=== PATIENT | female | born 1995 | race Caucasian/White ===

== ENCOUNTER 2025-02-22 15:47 | Inpatient (IN) | payer MEDICAID, OTHER ==
[~2025-02-22] VITALS: Ht 160 cm; Wt 79.4 kg
[2025-02-22 10:00] VITALS: BP 117/74; PULSE 66; RESP 18; TEMP 36.8072
[2025-02-22 15:51] VITALS: O2SAT 98
[2025-02-22 16:30] LABS: BASOPHILS % 0.9 % (0.0-2.0); EOSINOPHILS % 4.5 % (0.0-5.0); HEMATOCRIT. 37.2 % (36.0-48.0); HEMOGLOBIN. 12.5 g/dL (12.0-16.0); LYMPHOCYTES % 25.1 % (20.0-50.0); MEAN PLATELET VOLUME 9.0 fl (7.4-10.4); MONOCYTES % 3.7 % (2.0-8.0); NEUTROPHILS % 65.8 % (40.0-76.0); PLATELET 370 x1000/uL (130-400); RED BLOOD CELL COUNT 4.49 mill/uL (4.2-5.4); RED CELL DISTRIBUTION WIDTH 14.3 % (11.6-14.6)
[2025-02-22 16:40] LABS: CLARITY URINE CLEAR (CLEAR); COLOR URINE YELLOW (YELLOW); GLUCOSE URINE NEGATIVE (NEGATIVE); KETONES URINE NEGATIVE (NEGATIVE); LEUKOCYTE ESTERASE URINE NEGATIVE (NEGATIVE); NITRITE URINE NEGATIVE (NEGATIVE); OCCULT BLOOD URINE NEGATIVE (NEGATIVE); PH URINE 5.5 (4.5-8.0); PROTEIN URINE NEGATIVE (NEGATIVE); SPECIFIC GRAVITY URINE 1.008 (1.005-1.030); UROBILINOGEN URINE 0.2 E.U./dL (0.2-1.0)
[2025-02-22 16:44] LABS: CREATININE 0.8 mg/dL (0.6-1.0); UREA NITROGEN BLOOD 7 mg/dL (9-23)
[2025-02-22 16:46] LABS: ASPARTATE AMINOTRANSFERASE 83 IU/L (<34); BILIRUBIN DIRECT 0.2 mg/dL (<=3.0); BILIRUBIN TOTAL 0.5 mg/dL (0.1-1.0); PROTEIN TOTAL 8.5 g/dL (6.0-8.3)
[2025-02-22] MEDS: ONDANSETRON HCL 4MG/2ML INJ IV ONE (17:00)
[2025-02-22] MEDS: MORPHINE SULFATE 4 MG/ML INJ (FOR IV/IM USE) IV ONE (17:00)
[2025-02-22] MEDS: SODIUM CHLORIDE 0.9% 1,000 ML IV ONE (17:36)
[2025-02-22 18:16] LABS: HCG SCREEN NEGATIVE
[2025-02-22] MEDS ORDERED: HYDROCODONE/ACETAMINOPHEN 5/325MG TABLET PO PRN (22:00)
[2025-02-22] MEDS ORDERED: ZOLPIDEM TARTRATE 5MG TABLET PO PRN (22:00)
[2025-02-22] MEDS: ENOXAPARIN 40MG/0.4ML SYR SUBCUT SCH (22:00)
[2025-02-22] MEDS ORDERED: MAGNESIUM/ALUMINUM HYDROXIDE/SIMETHICONE 30ML UDC PO PRN (22:00)
[2025-02-22] MEDS ORDERED: HYDROMORPHONE HCL/PF 1MG/ML INJ IV PRN (22:00)
[2025-02-22] MEDS ORDERED: CLONIDINE 0.1MG TABLET PO PRN (22:00)
[2025-02-22] MEDS: SODIUM CHLORIDE 0.9% 1,000 ML IV SCH (22:00)
[2025-02-22] MEDS ORDERED: NALOXONE HCL 0.4MG/ML VIAL IV PRN (22:00)
[2025-02-22] MEDS: ONDANSETRON HCL 4MG/2ML INJ IV PRN (23:35)
[2025-02-22] MEDS: PANTOPRAZOLE SODIUM 40 MG/VIAL IV SCH (23:35)
[2025-02-23 07:47] LABS: BASOPHILS % 0.4 % (0.0-2.0); EOSINOPHILS % 3.9 % (0.0-5.0); HEMATOCRIT. 35.9 % (36.0-48.0); HEMOGLOBIN. 12.1 g/dL (12.0-16.0); LYMPHOCYTES % 36.4 % (20.0-50.0); MEAN PLATELET VOLUME 10.0 fl (7.4-10.4); MONOCYTES % 4.9 % (2.0-8.0); NEUTROPHILS % 54.4 % (40.0-76.0); PLATELET 335 x1000/uL (130-400); RED BLOOD CELL COUNT 4.33 mill/uL (4.2-5.4); RED CELL DISTRIBUTION WIDTH 14.3 % (11.6-14.6)
[2025-02-23 07:56] LABS: TRIGLYCERIDE 132.0 mg/dL (0-150)
[2025-02-23 07:57] LABS: LDL CHOLESTEROL 91.0 mg/dL (5-100)
[2025-02-23 08:00] VITALS: BP 98/65; PULSE 66; RESP 18; TEMP 36.5; O2SAT 97
[2025-02-23 10:14] LABS: *AMPHETAMINES SCREEN URINE NEGATIVE (NEGATIVE); *BENZODIAZEPINES SCREEN URINE NEGATIVE (NEGATIVE)
[2025-02-23 10:15] LABS: *BARBITURATES SCREEN URINE NEGATIVE (NEGATIVE); *COCAINE SCREEN URINE NEGATIVE (NEGATIVE); CANNABINOID URINE SCREEN NEGATIVE (NEGATIVE); ECSTASY MDMA SCREEN URINE NEGATIVE (NEGATIVE); METHADONE URINE SCREEN NEGATIVE (NEGATIVE); OPIATES URINE SCREEN NEGATIVE (NEGATIVE); PHENCYCLIDINE URINE SCREEN NEGATIVE (NEGATIVE)
[2025-02-23 12:00] VITALS: BP 112/65; PULSE 72; RESP 18; TEMP 36.6; O2SAT 98
[2025-02-23 16:00] VITALS: BP 110/66; PULSE 70; RESP 17; TEMP 36.6; O2SAT 98
[2025-02-23 20:00] VITALS: BP 105/60; PULSE 70; RESP 19; TEMP 35.8; O2SAT 98
[2025-02-23] MEDS: ACETAMINOPHEN 325MG TABLET PO PRN (21:53)
[2025-02-24] VITALS: BP_SYST 105; BP_SYST 108; BP_DIAS 53; BP_DIAS 60; PULSE 68; PULSE 70; RESP 18; RESP 19; TEMP 35.8; TEMP 36.4; O2SAT 98
[2025-02-24 04:00] VITALS: BP 111/59; PULSE 79; RESP 19; TEMP 36.4; O2SAT 99
[2025-02-24 08:00] VITALS: BP 110/67; PULSE 66; RESP 16; TEMP 36.4; O2SAT 98
[2025-02-24 08:22] LABS: BASOPHILS % 0.8 % (0.0-2.0); EOSINOPHILS % 6.3 % (0.0-5.0); HEMATOCRIT. 35.9 % (36.0-48.0); HEMOGLOBIN. 12.0 g/dL (12.0-16.0); LYMPHOCYTES % 51.4 % (20.0-50.0); MEAN PLATELET VOLUME 9.6 fl (7.4-10.4); MONOCYTES % 4.6 % (2.0-8.0); NEUTROPHILS % 36.9 % (40.0-76.0); PLATELET 312 x1000/uL (130-400); RED BLOOD CELL COUNT 4.31 mill/uL (4.2-5.4); RED CELL DISTRIBUTION WIDTH 14.3 % (11.6-14.6)
[2025-02-24 10:44] VITALS: BP 116/67; PULSE 66; RESP 16; TEMP 97.6
[2025-02-24 12:00] VITALS: BP 115/68; PULSE 68; RESP 16; TEMP 36.4; O2SAT 98
== END 2025-02-24 12:38 | disposition home or self-care (01) | DRG 440 ==
LOC: ER 15:47 → EDBEDREQ 18:39 → EDBEDREQTM 18:39 → ENRESERV 19:08 → 7EST 19:57
PROVIDERS: ADMIT Internal Medicine; ATTEND Internal Medicine
DX: K85.90 Acute pancreatitis without necrosis or infection, unspecified (principal); K86.1 Other chronic pancreatitis; R74.01 Elevation of levels of liver transaminase levels; K80.20 Calculus of gallbladder without cholecystitis without obstruction; Z79.899 Other long term (current) drug therapy
CPT/HCPCS: 36415; 74176; 80048; 80061; 80076; 80305; 81003; 84443; 84703; 85025; 93970; 99285; A4606; J1650; J2270; J2405; J2470; J7030